=== PATIENT | female | born 1975 | race Caucasian/White ===

== ENCOUNTER → 2024-05-01 15:14 | Outpatient (REF) | payer OTHER, SELFPAY | LOC: RAD 15:14 | PROVIDERS: ATTENDING PHYSICIAN Otolaryngology; FAMILY PHYSICIAN Nurse Practitioner Family | DX: J34.3 Hypertrophy of nasal turbinates (principal) | CPT/HCPCS: 70486 ==

== ENCOUNTER → 2025-03-29 08:23 | Outpatient (REF) | payer OTHER, SELFPAY | LOC: HWRAD 08:23 | PROVIDERS: ATTENDING PHYSICIAN Advanced Practice Midwife; FAMILY PHYSICIAN Student in an Organized Health Care Education/Training Program | DX: N95.0 Postmenopausal bleeding (principal) | CPT/HCPCS: 76830; 76856 ==

== ENCOUNTER 2025-05-31 06:22 | Day surgery (SDC) | payer OTHER, SELFPAY ==
[2025-05-22 09:51] LABS: Blood Urea Nitrogen 12 mg/dl (7-17); Calcium 9.1 mg/dl (8.4-10.2); Carbon Dioxide 27 mmol/L (22-30); Chloride 108 mmol/L (98-107); Glucose 85 mg/dl (70-99); Potassium 4.2 mmol/L (3.5-5.1); Sodium 139 mmol/L (135-145); eGFR > 60.00
[2025-05-27 09:20] LABS: Hematocrit 42.9 % (37.0-47.0); Hemoglobin 14.1 g/dL (12.0-16.0); Mean Corp Hgb Conc. 32.9 g/dL (33.0-37.0); Mean Corpuscular Volume 94.9 fL (81.0-99.0); Nucleated Red Blood Cells % 0 %; Platelet Count 366 10^3/uL (130-400); Red Cell Dist. Width 12.4 % (11.5-14.5)
[2025-05-31] VITALS (7 sets, daily range): BP systolic 101–113; BP diastolic 61–76; BMI 34.1
[2025-05-31] MEDS: NORMOSOL-R/PLASMALYTE-A 1000 IV (10:55)
[2025-05-31] MEDS: TYLENOL 1000 MG PO (10:55)
[2025-05-31] MEDS: NEURONTIN 300 MG PO (10:55)
--- NOTE | 2025-05-31 13:34 | W.IMMPOSTOP ---
Surgical Immed Post Op Note
-
Primary Surgeon: Estefany James DO
Assisting Surgeon: none
Pre-op Diagnosis: Postmenopausal bleeding
Post-op Diagnosis: same
Procedure Performed: hysteroscopy D&C
Anesthesia Type: general LMA
Specimen / Cultures: 1. endocervical curettings 2. endometrial curettings
Estimated Blood Loss: 2ml
fluid deficit 175ml
Complications: none
Operative Findings: Uterus sounded to 8 cm, atrophic endometrial lining. No evidence of polyp or tumor. Bilateral tubal ostia seen.
counts correct times 2.
Stable to recovery.
== END 2025-05-31 14:20 | disposition home or self-care (01) ==
LOC: SDS 06:22
PROVIDERS: ATTENDING PHYSICIAN Obstetrics & Gynecology; FAMILY PHYSICIAN Student in an Organized Health Care Education/Training Program
DX: N95.0 Postmenopausal bleeding (principal)
CPT/HCPCS: 58558; 80048; 85025; 86850; 86900; 86901; 88305; 93005